=== PATIENT | female | born 1980 | race African-American/Black ===

== ENCOUNTER 2025-05-04 06:17 | Inpatient (IN) | payer OTHER ==
[2025-04-30 18:18] VITALS: BMI 28.3
[2025-05-04] MEDS ORDERED: MIDAZOLAM HCL 2 MG/2 ML SINGLE DOSE VIAL ONE (08:53)
[2025-05-04] MEDS ORDERED: HEPARIN NA (PORCINE) 5,000 UNITS/ML 1ML VIAL ONE (09:44)
[2025-05-04] MEDS ORDERED: PROPOFOL 20 ML ONE (09:54)
[2025-05-04] MEDS ORDERED: ROCURONIUM BROMIDE 50 MG/5 ML SYRINGE ONE (09:54)
[2025-05-04] MEDS ORDERED: DEXAMETHASONE SOD PHOSPHATE 4 MG/1 ML VIAL ONE (10:28)
[2025-05-04] MEDS ORDERED: ONDANSETRON 4 MG/2 ML VIAL ONE (10:28)
[2025-05-04] MEDS ORDERED: ACETAMINOPHEN INJECTION 100 ML ONE (10:54)
[2025-05-04] MEDS ORDERED: TRANEXAMIC ACID 1000 MG/10 ML VIAL ONE (11:20)
[2025-05-04] MEDS ORDERED: GLYCOPYRROLATE 0.2 MG/1 ML VIAL ONE (12:24)
[2025-05-04] MEDS ORDERED: NEOSTIGMINE METHYLSULFATE 0.5 MG/1 ML - 10 ML MDV ONE (12:24)
[2025-05-04] MEDS ORDERED: BISACODYL 5 MG TABLET.DR (FP) PO PRN (12:28)
[2025-05-04] MEDS ORDERED: ONDANSETRON 4 MG/2 ML VIAL IVPUSH PRN ×3 (12:28→12:48)
[2025-05-04] MEDS ORDERED: IBUPROFEN 800 MG/8 ML IJ IVPB PRN (12:28)
[2025-05-04] MEDS ORDERED: NALOXONE HCL 0.4 MG/ML VIAL ONE (12:35)
[2025-05-04] MEDS ORDERED: LACTATED RINGERS SOLUTION 1,000 ML IV SCH (13:00)
[2025-05-04] MEDS: LACTATED RINGERS SOLUTION 1,000 ML/1,000 ML INFUS.BAG IV SCH (13:28)
[2025-05-04] MEDS: ACETAMINOPHEN 1000 MG/100 ML BAG IVPB SCH (17:54)
[2025-05-04] MEDS: CEFAZOLIN 1 GM in DEXTROSE 5%-WATER - 50 ML IVPB SCH (17:56)
[2025-05-04 18:38] LABS: MCHC 32.3 g/dl (32.2-35.5); MEAN CELL VOLUME 93.9 fl (79.4-94.8); MEAN PLT VOLUME 10.2 fl (9.4-12.3); RDW 12.3 % (12.2-17.1)
[2025-05-04 18:51] LABS: GLUCOSE,RANDOM 135.0 mg/dL (74-106)
[2025-05-04 18:52] LABS: CO2 25.0 mmol/L (21-32)
[2025-05-04 18:56] LABS: CREATININE 0.6 mg/dL (0.55-1.3)
[2025-05-04] MEDS ORDERED: ACETAMINOPHEN 1000 MG/100 ML BAG IVPB SCH (19:00)
[2025-05-04] MEDS: PHENAZOPYRIDINE HCL 100 MG TABLET (FP) PO ONE (20:13)
[2025-05-04] MEDS: ACETAMINOPHEN 1000 MG/100 ML BAG IVPB ONE (20:14)
[2025-05-04] MEDS: TRANEXAMIC ACID 1000 MG/10 ML VIAL IVPUSH ONE (20:15)
[2025-05-05 07:36] LABS: MCHC 32.3 g/dl (32.2-35.5); MEAN CELL VOLUME 92.7 fl (79.4-94.8); MEAN PLT VOLUME 10.2 fl (9.4-12.3); RDW 12.2 % (12.2-17.1)
[2025-05-05 07:54] LABS: GLUCOSE,RANDOM 82.0 mg/dL (74-106)
[2025-05-05 07:55] LABS: CO2 27.0 mmol/L (21-32)
[2025-05-05 07:59] LABS: CREATININE 0.61 mg/dL (0.55-1.3)
[2025-05-05] MEDS: ENOXAPARIN NA (PORCINE) 40 MG/0.4 ML DISP.SYRIN SQ SCH (10:00)
[2025-05-05] MEDS: IBUPROFEN 600 MG TABLET (FP) PO PRN (10:11)
[2025-05-05] MEDS: SIMETHICONE 80 MG TAB.CHEW (FP) PO PRN (10:11)
[2025-05-05] MEDS: ACETAMINOPHEN 500 MG TABLET (FP) PO PRN (11:32)
[2025-05-05 18:30] LABS: ABSOLUTE IMMATURE GRANULOCYTES 0.02 x10^3/uL (0.0-0.031); BASOPHILS # 0.04 x10^3/uL (0.01-0.08); EOSINOPHIL % 1.4 % (0.7-5.8); EOSINOPHILS # 0.14 x10^3/uL (0.04-0.36); MCHC 33.3 g/dl (32.2-35.5); MEAN CELL VOLUME 92.2 fl (79.4-94.8); MEAN PLT VOLUME 9.8 fl (9.4-12.3); MONOCYTE # 0.95 x10^3/uL (0.24-0.86); MONOCYTE % 9.2 % (4.7-12.5); RDW 12.5 % (12.2-17.1)
[2025-05-05] MEDS: DOCUSATE SODIUM 100 MG CAPSULE (FP) PO PRN (21:28)
[2025-05-06] MEDS: BISACODYL 10 MG SUPP.RECT PR ONE (07:59)
[2025-05-06 08:57] VITALS: BP 132/82; PULSE 92; RESP 17; TEMP 98.4
[2025-05-06] MEDS: BACITRACIN ZINC 15 GM TUBE TOPICAL OINTMENT TP SCH (10:33)
== END 2025-05-06 16:15 | disposition home or self-care (01) | DRG 519 ==
LOC: J2C 06:17 → J3W 15:10
PROVIDERS: ADMIT Obstetrics & Gynecology; ATTEND Obstetrics & Gynecology
PROC: 0UB90ZZ Excision of Uterus, Open Approach (ICD-10-PCS; principal; 2025-05-04 10:15)
DX: D25.1 Intramural leiomyoma of uterus (principal); D25.2 Subserosal leiomyoma of uterus; D25.0 Submucous leiomyoma of uterus; N92.0 Excessive and frequent menstruation with regular cycle; N83.01 Follicular cyst of right ovary; N83.8 Other noninflammatory disorders of ovary, fallopian tube and broad ligament
CPT/HCPCS: 36415; 80048; 85025; 85027; 86850; 86900; 86901; 88305-TC; 94010; 94760